=== PATIENT | female | born 1950 | race Caucasian/White ===

== ENCOUNTER 2021-01-24 18:25 | Inpatient (IN) | payer OTHER ==
[~2021-01-24] VITALS: Ht 162.6 cm; Wt 88.9 kg
[2021-01-24 20:59] LABS: HEMOGLOBIN 11.8 gm/dl (12.3-15.3); RED BLOOD COUNT 3.9 M/UL (4.00-5.10); WHITE BLOOD COUNT 16.4 K/UL (4.5-11.0)
[2021-01-24 21:18] LABS: BUN/CREATININE RATIO 23 (0-10)
[2021-01-24] MEDS ORDERED: AMLODIPINE BESYL5 MG PO (23:59)
[2021-01-25] MEDS ORDERED: IPRAT-ALBUT 0.5-3 ML INH (00:01)
[2021-01-25] MEDS ORDERED: TRAMADOL HCL50 MG PO (00:13)
--- NOTE | 2021-01-25 00:52 | NUR ---
DURING HOME MED REC PATIENT STATED SHE HAD NOT BEEN TO SEE HER PCP IN FOUR MONTHS AND HASNT BEEN TAKING HER BLOODPRESSURE MEDS 'SINCE THEY RAN OUT A FEW MONTHS AGO'. LAST FILLED IN AUGUST.
[2021-01-25] MEDS ORDERED: ADVAIR 250-501 EACH INH (11:49)
[2021-01-25] MEDS ORDERED: GABAPENTIN100 MG PO (11:49)
[2021-01-25] MEDS ORDERED: PRILOSEC OTC20 MG PO (11:50)
[2021-01-26 08:08] LABS: HEMOGLOBIN 9.8 gm/dl (12.3-15.3); RED BLOOD COUNT 3.35 M/UL (4.00-5.10); WHITE BLOOD COUNT 12.2 K/UL (4.5-11.0)
--- NOTE | 2021-01-26 08:26 | NUR ---
Patient was dx with P.E. orders were rec. to start heparin gtt, however heparin gtt needs to be on hold for 2-3 hours prior to going to surgery. Plans were for patient to go to surgery today, so heparin gtt has not been initiated. Bailey attempted to call Dr. Chun several times for orders, but I have not reached him. I also call his assistant chief of police Sayra Sarkar but there was no answer there either. I called Dtr. Reyes and made him aware, and he instructed me not to start the heparin gtt until I rec. orders from Dr. Chun. I also made Dr. Reyes aware patient is tachycardic rate inconsistent 100's -140's, and 02 sat 93 on 5 liters of 02. No further orders rec.
--- NOTE | 2021-01-26 17:42 | NUR ---
LATE ENTRY- [address] Chun that prelimanary report read patient had a P.E., and that was ther reason for notification this morning that pat. had a P.E. and that was the reason Dr. Jerez ordered a heparinn gtt however, the final report showed no evidence of P.E. no further orders were given except Dr. Chun requested that I call the hospitalist for orders for dvt prophylaxis. I called Dr. Avilez and orders were rec. for Vivek
--- NOTE | 2021-01-26 19:57 | NUR ---
Addendium to note documented at [address] Reyes and made him aware preliminary report read that the patient had a P.E., however final report read no P.E., Right lower lobe atelectasis and pulmonary nodules or consolidation, no pleural effusion and per Dr. Reyes there is no need for heparin gtt.
[2021-01-27 08:03] LABS: HEMOGLOBIN 7.9 gm/dl (12.3-15.3); WHITE BLOOD COUNT 13.9 K/UL (4.5-11.0)
[2021-01-27 08:13] LABS: BUN/CREATININE RATIO 32 (0-10)
[2021-01-27 08:14] LABS: RED BLOOD COUNT 2.73 M/UL (4.00-5.10)
--- NOTE | 2021-01-27 14:01 | NUR ---
ORIGINAL CHEST CT OF 01/26/21 SHOWS NO PE. UPON FURTHER REVIEW, CT HAS MADE AN ADDENDUM STATING THAT PT INDEED HAS A PE. SUPERVIOSR, ORTHO SURGEON, HOSPITALIST, ARE ALL AWARE.
[2021-01-28 06:38] LABS: HEMOGLOBIN 8.5 gm/dl (12.3-15.3); RED BLOOD COUNT 2.87 M/UL (4.00-5.10); WHITE BLOOD COUNT 13.3 K/UL (4.5-11.0)
[2021-01-28 07:04] LABS: BUN/CREATININE RATIO 35 (0-10)
--- NOTE | 2021-01-28 11:46 | NUR ---
TEOFILO BENÍTEZ NOTIFIED NURSE THAT PT DOESNT WANT TO LIVE ANYMORE. PT STATED THE WANT TO , THE RESON FOR COMMITTING SUICIDE, AND THE METHOD WITH WHICH SHE PLANS TO DO IT. HOSPITALIST AND ART MUSEUM AIDE HAS BEEN NOTIFIED AND AN OLAP EVAL HAS BEEN ORDERED BY HOSPITALIST. SUICIDAL PRECAUTIONS HAVE BEEN INITIATED. JOSE
--- NOTE | 2021-01-28 18:06 | NUR ---
MD NOTIFIED OF OLOP EVALUTATION RESUTLS. MD ORDERED TO DC SUICIDAL PRECAUTIONS. PHARMACIST HELPER MADE AWARE.
[2021-01-29 09:29] LABS: WHITE BLOOD COUNT 9.6 K/UL (4.5-11.0)
[2021-01-29 09:47] LABS: BUN/CREATININE RATIO 34 (0-10)
--- NOTE | 2021-01-29 18:10 | NUR ---
WOUND CARE PERFORMED DUE TO SATURATION OF SITE PIN DRESSINGS. PATIENT TOLERATED WELL.
[2021-01-30 08:51] LABS: RED BLOOD COUNT 2.79 M/UL (4.00-5.10); WHITE BLOOD COUNT 9.3 K/UL (4.5-11.0)
[2021-01-30 09:21] LABS: BUN/CREATININE RATIO 28 (0-10)
[2021-01-31 07:46] LABS: HEMOGLOBIN 8.1 gm/dl (12.3-15.3); RED BLOOD COUNT 2.83 M/UL (4.00-5.10); WHITE BLOOD COUNT 9.2 K/UL (4.5-11.0)
[2021-01-31 08:28] LABS: BUN/CREATININE RATIO 30 (0-10)
[2021-02-01 06:30] LABS: HEMOGLOBIN 8.1 gm/dl (12.3-15.3); RED BLOOD COUNT 2.73 M/UL (4.00-5.10); WHITE BLOOD COUNT 10.9 K/UL (4.5-11.0)
[2021-02-01 07:01] LABS: BUN/CREATININE RATIO 31 (0-10)
[2021-02-02 06:50] LABS: HEMOGLOBIN 7.6 gm/dl (12.3-15.3); RED BLOOD COUNT 2.63 M/UL (4.00-5.10); WHITE BLOOD COUNT 8.3 K/UL (4.5-11.0)
[2021-02-02 07:08] LABS: BUN/CREATININE RATIO 22 (0-10)
[2021-02-03 07:27] LABS: HEMOGLOBIN 7.7 gm/dl (12.3-15.3); RED BLOOD COUNT 2.6 M/UL (4.00-5.10); WHITE BLOOD COUNT 7.4 K/UL (4.5-11.0)
[2021-02-03 07:34] LABS: BUN/CREATININE RATIO 22 (0-10)
[2021-02-04 06:40] LABS: HEMOGLOBIN 7.9 gm/dl (12.3-15.3); RED BLOOD COUNT 2.55 M/UL (4.00-5.10); WHITE BLOOD COUNT 6.9 K/UL (4.5-11.0)
[2021-02-04 07:13] LABS: BUN/CREATININE RATIO 22 (0-10)
[2021-02-04] MEDS ORDERED: ELIQUIS 5 MG TAB5 MG PO (13:29)
[2021-02-04] MEDS ORDERED: PERCOCET 5/325 T1 EA PO (13:29)
[2021-02-04] MEDS ORDERED: DULOXETINE HCL30 MG PO (13:29)
[2021-02-04] MEDS ORDERED: GABAPENTIN100 MG PO (13:29)
--- NOTE | 2021-02-05 02:58 | NUR ---
R/T [facility] AND PER WHEAT AND [employer]KE M[employer]ER: BEDSIDE TABLE MOVED TO BATHROOM, WINDOWS SECURED, BLINDS LOWERED, PT SECURED AND MADE AWARE. JOSE
[2021-02-05 05:06] LABS: HEMOGLOBIN 7.7 gm/dl (12.3-15.3); RED BLOOD COUNT 2.55 M/UL (4.00-5.10); WHITE BLOOD COUNT 6.3 K/UL (4.5-11.0)
[2021-02-05 05:26] LABS: BUN/CREATININE RATIO 19 (0-10)
== END 2021-02-05 11:08 | DRG 956 ==
LOC: ER1 18:25 → M/S 20:33 → CDU 20:33 → M/S 22:40
PROVIDERS: Emergency Medicine; Internal Medicine; Orthopaedic Surgery; Physician Assistant; ADMIT Internal Medicine
PROC: 3E02340 Introduction of Influenza Vaccine into Muscle, Percutaneous Approach (ICD-10-PCS; 2021-01-24)
PROC: 0QSB04Z Reposition Right Lower Femur with Internal Fixation Device, Open Approach (ICD-10-PCS; principal; 2021-01-26 13:00)
PROC: 30233N1 Transfusion of Nonautologous Red Blood Cells into Peripheral Vein, Percutaneous Approach (ICD-10-PCS; 2021-01-27)
PROC: 5A0935A Assistance with Respiratory Ventilation, Less than 24 Consecutive Hours, High Flow/Velocity Cannula (ICD-10-PCS; 2021-01-27)
DX: S72.491A Other fracture of lower end of right femur, initial encounter for closed fracture (principal); T79.1XXA Fat embolism (traumatic), initial encounter; J96.21 Acute and chronic respiratory failure with hypoxia; I26.92 Saddle embolus of pulmonary artery without acute cor pulmonale; D62 Acute posthemorrhagic anemia; W01.0XXA Fall on same level from slipping, tripping and stumbling without subsequent striking against object, initial encounter; J44.9 Chronic obstructive pulmonary disease, unspecified; F17.210 Nicotine dependence, cigarettes, uncomplicated; I10 Essential (primary) hypertension; Z90.710 Acquired absence of both cervix and uterus; Z80.8 Family history of malignant neoplasm of other organs or systems; Z99.81 Dependence on supplemental oxygen; Z79.899 Other long term (current) drug therapy; Z88.8 Allergy status to other drugs, medicaments and biological substances; Z23 Encounter for immunization; Z79.01 Long term (current) use of anticoagulants
CPT/HCPCS: 36415; 36600; 71045; 71275; 73080; 73552; 73562; 73590; 73700; 76000; 80048; 80053; 81001; 82803; 83735; 85025; 85027; 85610; 85730; 86850; 86900; 86901; 86920; 90686; 93005; 94640; 94664; 94760; 97110; 97110-GP-CQ; 97162; 97165; 97530; 97530-GP-CQ; 97535; 99285; C1713; J0171; J0690; J1100; J1650; J2001; J2250; J2270; J2370; J2405; J2550; J2704; J2795; J7030; J7120; P9016; Q0177; Q9967; U0002